=== PATIENT | male | born 1970 | race African-American/Black ===

== ENCOUNTER 2022-04-26 21:19 | Inpatient (IN) | payer MEDICARE ==
[~2022-04-26] VITALS: Ht 182.9 cm; Wt 105.2 kg
[2022-04-26] MEDS ORDERED: VANCOMYCIN 1G PREMIX 200 ML IV ONE (22:30)
[2022-04-26] MEDS ORDERED: PIPERACILLIN/TAZ 3.375G PREMIX 50 ML IV ONE (22:30)
[2022-04-26] MEDS ORDERED: SODIUM CHLORIDE 0.9% 1000ML BAG (SEPSIS BOLUS) IV ONE (22:30)
[2022-04-26] MEDS ORDERED: ACETAMINOPHEN 650MG SUPP PR ONE (22:45)
[2022-04-26 22:58] LABS: BASOPHILS % 0.7 % (0.0-2.0); EOSINOPHILS % 0.5 % (0.0-5.0); HEMATOCRIT. 27.3 % (42.0-52.0); HEMOGLOBIN. 8.9 g/dL (14.0-18.0); LYMPHOCYTES % 11.3 % (20.0-50.0); MEAN CORPUSCULAR HEMOGLOBIN 28.5 pg (28.0-32.0); MEAN CORPUSCULAR VOLUME 87.1 fL (80.0-94.0); MEAN PLATELET VOLUME 9.8 fl (7.4-10.4); MONOCYTES % 5.8 % (2.0-8.0); NEUTROPHILS % 81.7 % (40.0-76.0); PLATELET 207 x1000/uL (130-400); RED BLOOD CELL COUNT 3.13 mill/uL (4.7-6.1); RED CELL DISTRIBUTION WIDTH 19.3 % (11.6-14.6)
[2022-04-26 23:07] LABS: CHLORIDE 119 mEq/L (98-107)
[2022-04-27] VITALS (18 sets, daily range): BP systolic 132–207; BP diastolic 78–106
[2022-04-27 00:21] LABS: CLARITY URINE CLOUDY (CLEAR); COLOR URINE YELLOW (YELLOW); KETONES URINE NEGATIVE (NEGATIVE); LEUKOCYTE ESTERASE URINE 3+ (NEGATIVE); NITRITE URINE POSITIVE (NEGATIVE); OCCULT BLOOD URINE NEGATIVE (NEGATIVE); PH URINE >=9.0 (4.5-8.0); PROTEIN URINE 2+ (NEGATIVE); SPECIFIC GRAVITY URINE 1.015 (1.005-1.030)
[2022-04-27] MEDS ORDERED: MAGNESIUM/ALUMINUM HYDROXIDE/SIMETHICONE 30ML UDC PO PRN (01:00)
[2022-04-27] MEDS ORDERED: GUAIFENESIN 200MG/10ML SUGAR FREE UDC PO PRN (01:00)
[2022-04-27] MEDS ORDERED: ONDANSETRON HCL 4MG/2ML INJ IV PRN (01:00)
[2022-04-27] MEDS ORDERED: HYDROCODONE/ACETAMINOPHEN 10/325MG TABLET PO PRN (01:00)
[2022-04-27] MEDS ORDERED: HYDROCODONE/ACETAMINOPHEN 5/325MG TABLET PO PRN (01:00)
[2022-04-27] MEDS: DEXTROSE 5% WATER 1,000 ML IV SCH ×4 (01:00→20:30)
[2022-04-27] MEDS ORDERED: NALOXONE HCL 0.4MG/ML VIAL IV PRN (01:30)
[2022-04-27] MEDS ORDERED: AZITHROMYCIN 500 MG in DEXT 5% WATER 250 ML IV SCH (06:00)
[2022-04-27] MEDS ORDERED: CEFTRIAXONE 1,000 MG in DEXTROSE 5% WATER 50 ML IV SCH (06:00)
[2022-04-27] MEDS ORDERED: CEFTRIAXONE 1 G PREMIX 50 ML IV SCH (09:00)
[2022-04-27] MEDS: ENOXAPARIN 40MG/0.4ML SYR SUBCUT SCH (11:46)
[2022-04-27 13:22] LABS: FOLIC ACID (FOLATE) SERUM 18.4 ng/mL (>5.38)
[2022-04-27] MEDS: ACETAMINOPHEN 325MG TABLET PO PRN (13:24)
[2022-04-27] MEDS: CLONIDINE 0.1MG TABLET PO PRN (13:25)
[2022-04-27] MEDS ORDERED: TOPUD PO (14:03)
[2022-04-27] MEDS ORDERED: HYDR100T26 PO (14:03)
[2022-04-27] MEDS ORDERED: AMLO10TA80 PO (14:03)
[2022-04-27] MEDS ORDERED: LABE200T9 PO (14:03)
[2022-04-27] MEDS ORDERED: GABA-529 PO (14:03)
[2022-04-27 16:05] LABS: BASOPHILS % 1.2 % (0.0-2.0); EOSINOPHILS % 1.2 % (0.0-5.0); HEMATOCRIT. 23.3 % (42.0-52.0); HEMOGLOBIN. 7.7 g/dL (14.0-18.0); LYMPHOCYTES % 20.2 % (20.0-50.0); MEAN CORPUSCULAR HEMOGLOBIN 28.9 pg (28.0-32.0); MEAN CORPUSCULAR VOLUME 87.1 fL (80.0-94.0); MEAN PLATELET VOLUME 10.2 fl (7.4-10.4); MONOCYTES % 9.5 % (2.0-8.0); NEUTROPHILS % 67.9 % (40.0-76.0); PLATELET 162 x1000/uL (130-400); RED BLOOD CELL COUNT 2.67 mill/uL (4.7-6.1); RED CELL DISTRIBUTION WIDTH 19.2 % (11.6-14.6)
[2022-04-27] MEDS ORDERED: IOHEXOL-350 100 ML BOTTLE ONE (16:10)
[2022-04-27 16:11] LABS: CHLORIDE 118 mEq/L (98-107)
[2022-04-27 16:20] LABS: ETHANOL BLOOD < 10 mg/dL
[2022-04-27] MEDS ORDERED: GADOTERATE MEGLUMINE 5 MMOL/10 ML VIAL IV ONE (17:02)
[2022-04-27] MEDS ORDERED: AMPICILLIN SOD/SULBACTAM NA 3 G in SODIUM CHLORIDE 0.9% 100 ML IV SCH (17:15)
[2022-04-27 19:46] LABS: CLARITY URINE CLEAR (CLEAR); COLOR URINE YELLOW (YELLOW); KETONES URINE NEGATIVE (NEGATIVE); LEUKOCYTE ESTERASE URINE 2+ (NEGATIVE); NITRITE URINE NEGATIVE (NEGATIVE); OCCULT BLOOD URINE NEGATIVE (NEGATIVE); PH URINE 5.5 (4.5-8.0); PROTEIN URINE TRACE (NEGATIVE); SPECIFIC GRAVITY URINE 1.019 (1.005-1.030); UROBILINOGEN URINE 0.2 E.U./dL (0.2-1.0)
[2022-04-27] MEDS ORDERED: VANCOMYCIN 1,750 MG in DEXT 5% WATER 250 ML IV NR (20:00)
[2022-04-27 20:08] LABS: *AMPHETAMINES SCREEN URINE NEGATIVE (NEGATIVE); *BARBITURATES SCREEN URINE NEGATIVE (NEGATIVE); *BENZODIAZEPINES SCREEN URINE NEGATIVE (NEGATIVE); *COCAINE SCREEN URINE NEGATIVE (NEGATIVE); CANNABINOID URINE SCREEN NEGATIVE (NEGATIVE); METHADONE URINE SCREEN NEGATIVE (NEGATIVE); OPIATES URINE SCREEN NEGATIVE (NEGATIVE); PHENCYCLIDINE URINE SCREEN NEGATIVE (NEGATIVE)
[2022-04-27] MEDS: PIPERACILLIN/TAZOBACTAM 3.375 G in DEXTROSE 5% WATER 50 ML IV SCH (21:40)
[2022-04-27] MEDS: NICARDIPINE 50 MG in SODIUM CHLORIDE 0.9% 230 ML IV PRN (21:53)
[2022-04-27 22:13] LABS: BG BASE EXCESS -0.4 mmol/L (-2.0-2.0); BG CARBOXYHEMOGLOBIN 0.3 % (0.5-1.5); BG DEOXYHEMOGLOBIN 1.1 % (0.0-5.0); BG FRACTION INSPIRED OXYGEN 40; BG HCO3 ACT 24.1 mmol/L (22.0-26.0); BG METHEMOGLOBIN 0.3 % (0.0-1.5); BG OXYGEN SATURATION 98.9 % (92.0-98.5); BG OXYHEMOGLOBIN 98.3 % (94.0-97.0); BG PCO2 38.6 mmHg (35.0-45.0); BG PH 7.413 (7.350-7.450); BG SAMPLE SITE RIGHT RADIAL; BG TOTAL HEMOGLOBIN 8.6 g/dL (12.0-18.0); BG VENT MODE NASAL CANNULA
[2022-04-27] MEDS ORDERED: LABETALOL HCL 5MG/ML VIAL 20ML IV NR (23:30)
[2022-04-27] MEDS ORDERED: LABETALOL 5MG/ML SYR 20 MG/4 ML SYRINGE IV NR (23:59)
[2022-04-28] VITALS (70 sets, daily range): BP systolic 130–175; BP diastolic 69–129
[2022-04-28] MEDS ORDERED: LABETALOL 5MG/ML SYR 20 MG/4 ML SYRINGE IV NR ×2 (01:30→03:30)
[2022-04-28] MEDS: NICARDIPINE 50 MG in SODIUM CHLORIDE 0.9% 230 ML IV PRN ×3 (01:45→09:04)
[2022-04-28] MEDS ORDERED: HYDRALAZINE 10 MG in SODIUM CHLORIDE 0.9% 49.5 ML IV PRN (02:30)
[2022-04-28] MEDS: HYDRALAZINE 20MG/ML VIAL IV PRN ×2 (02:41→14:24)
[2022-04-28] MEDS: DEXTROSE 5% WATER 1,000 ML IV SCH ×2 (04:17→17:15)
[2022-04-28] MEDS: PIPERACILLIN/TAZOBACTAM 3.375 G in DEXTROSE 5% WATER 50 ML IV SCH ×3 (05:02→21:31)
[2022-04-28 05:03] LABS: BASOPHILS % 1.3 % (0.0-2.0); HEMATOCRIT. 28.9 % (42.0-52.0); HEMOGLOBIN. 9.6 g/dL (14.0-18.0); LYMPHOCYTES % 13.8 % (20.0-50.0); MEAN CORPUSCULAR VOLUME 87.7 fL (80.0-94.0); MEAN PLATELET VOLUME 10.6 fl (7.4-10.4); MONOCYTES % 8.3 % (2.0-8.0); NEUTROPHILS % 73.6 % (40.0-76.0); PLATELET 184 x1000/uL (130-400); RED CELL DISTRIBUTION WIDTH 19.5 % (11.6-14.6)
[2022-04-28] MEDS: VANCOMYCIN 1GM PMX (XELLIA) 200 ML IV SCH ×2 (05:03→17:14)
[2022-04-28 05:29] LABS: CHLORIDE 114 mEq/L (98-107)
[2022-04-28 05:35] LABS: PHOSPHORUS 2.7 mg/dL (2.5-4.9)
[2022-04-28] MEDS ORDERED: AZITHROMYCIN 500 MG in DEXT 5% WATER 250 ML IV SCH (06:00)
[2022-04-28] MEDS: ENOXAPARIN 40MG/0.4ML SYR SUBCUT SCH (09:07)
[2022-04-28] MEDS ORDERED: PNEUMOCOCCAL 23-VAL P-SAC VAC 0.5 ML IM ONE (10:00)
[2022-04-28 10:25] LABS: BG BASE EXCESS 1.6 mmol/L (-2.0-2.0); BG CARBOXYHEMOGLOBIN 0.3 % (0.5-1.5); BG DEOXYHEMOGLOBIN 5.9 % (0.0-5.0); BG FRACTION INSPIRED OXYGEN 28; BG HCO3 ACT 25.1 mmol/L (22.0-26.0); BG METHEMOGLOBIN 0.3 % (0.0-1.5); BG OXYGEN SATURATION 94.1 % (92.0-98.5); BG OXYHEMOGLOBIN 93.5 % (94.0-97.0); BG PCO2 35.2 mmHg (35.0-45.0); BG PH 7.471 (7.350-7.450); BG PO2 65.9 mmHg (75.0-100.0); BG SAMPLE SITE RIGHT RADIAL; BG TOTAL HEMOGLOBIN 9.9 g/dL (12.0-18.0); BG VENT MODE NASAL CANNULA
[2022-04-28] MEDS: NICARDIPINE 100 MG in SODIUM CHLORIDE 0.9% 60 ML IV PRN ×2 (12:11→20:18)
[2022-04-28] MEDS: AMLODIPINE 5MG TABLET PO SCH (13:41)
[2022-04-28] MEDS: CLONIDINE 0.1MG TABLET PO PRN (15:03)
[2022-04-28] MEDS ORDERED: LABETALOL 5MG/ML SYR 20 MG/4 ML SYRINGE IV PRN (15:15)
[2022-04-29] VITALS (77 sets, daily range): BP systolic 117–174; BP diastolic 56–107
[2022-04-29] MEDS: DEXTROSE 5% WATER 1,000 ML IV SCH ×3 (01:09→17:02)
[2022-04-29] MEDS: HYDRALAZINE 20MG/ML VIAL IV PRN (02:17)
[2022-04-29] MEDS: NICARDIPINE 100 MG in SODIUM CHLORIDE 0.9% 60 ML IV PRN ×3 (04:23→20:05)
[2022-04-29] MEDS: PIPERACILLIN/TAZOBACTAM 3.375 G in DEXTROSE 5% WATER 50 ML IV SCH (05:08)
[2022-04-29] MEDS: VANCOMYCIN 1GM PMX (XELLIA) 200 ML IV SCH ×2 (05:08→17:04)
[2022-04-29 05:49] LABS: HEMOGLOBIN 8.3 g/dL (14.0-18.0); MEAN CORPUSCULAR HEMOGLOBIN 28.9 pg (28.0-32.0); MEAN CORPUSCULAR VOLUME 86.4 fL (80.0-94.0); PLATELET 173 x1000/uL (130-400); RED BLOOD CELL COUNT 2.89 mill/uL (4.7-6.1); RED CELL DISTRIBUTION WIDTH 18.6 % (11.6-14.6)
[2022-04-29 06:40] LABS: CHLORIDE 112 mEq/L (98-107)
[2022-04-29 06:47] LABS: VANCOMYCIN TROUGH 18.2 ug/mL (5.0-10.0)
[2022-04-29] MEDS ORDERED: POTASSIUM CHLORIDE INJ 40 MEQ in DEXT 5% WATER 250 ML IV ONE (07:30)
[2022-04-29] MEDS: KCL 20MEQ/100ML X 2 FOR TOTAL KCL 40MEQ/200ML IV SCH ×2 (08:41→10:52)
[2022-04-29] MEDS: AMLODIPINE 5MG TABLET PO SCH (08:41)
[2022-04-29] MEDS: ENOXAPARIN 40MG/0.4ML SYR SUBCUT SCH (08:42)
[2022-04-29 12:05] LABS: CHLORIDE 111 mEq/L (98-107)
[2022-04-29] MEDS: HYDRALAZINE HCL 25MG TABLET PO SCH ×2 (13:55→21:10)
[2022-04-29] MEDS: MEROPENEM 1,000 MG in SODIUM CHLORIDE 0.9% 100 ML IV SCH (17:02)
[2022-04-29] MEDS: ENOXAPARIN 30MG/0.3ML SYR SUBCUT SCH (21:10)
[2022-04-30] VITALS (96 sets, daily range): BP systolic 126–183; BP diastolic 54–145
[2022-04-30] MEDS: MEROPENEM 1,000 MG in SODIUM CHLORIDE 0.9% 100 ML IV SCH ×3 (00:09→15:11)
[2022-04-30] MEDS: DEXTROSE 5% WATER 1,000 ML IV SCH ×3 (01:00→16:47)
[2022-04-30] MEDS: NICARDIPINE 100 MG in SODIUM CHLORIDE 0.9% 60 ML IV PRN ×3 (04:15→16:47)
[2022-04-30 06:21] LABS: BASOPHILS % 1.2 % (0.0-2.0); EOSINOPHILS % 3.8 % (0.0-5.0); HEMATOCRIT. 27.5 % (42.0-52.0); HEMOGLOBIN. 9.2 g/dL (14.0-18.0); LYMPHOCYTES % 30.8 % (20.0-50.0); MEAN CORPUSCULAR HEMOGLOBIN 28.6 pg (28.0-32.0); MEAN CORPUSCULAR VOLUME 85.9 fL (80.0-94.0); MEAN PLATELET VOLUME 10.5 fl (7.4-10.4); MONOCYTES % 12.2 % (2.0-8.0); PLATELET 217 x1000/uL (130-400); RED BLOOD CELL COUNT 3.21 mill/uL (4.7-6.1); RED CELL DISTRIBUTION WIDTH 18.4 % (11.6-14.6)
[2022-04-30 06:37] LABS: CHLORIDE 105 mEq/L (98-107)
[2022-04-30] MEDS: VANCOMYCIN 1GM PMX (XELLIA) 200 ML IV SCH ×2 (06:43→17:02)
[2022-04-30] MEDS: HYDRALAZINE HCL 25MG TABLET PO SCH (06:43)
[2022-04-30] MEDS ORDERED: POTASSIUM CHLORIDE 20MEQ/PACKET JT SCH (08:00)
[2022-04-30] MEDS: AMLODIPINE 10MG TABLET PO SCH (08:51)
[2022-04-30] MEDS: ENOXAPARIN 30MG/0.3ML SYR SUBCUT SCH ×2 (08:52→20:53)
[2022-04-30] MEDS: LABETALOL HCL 200MG TABLET PO SCH ×2 (08:58→20:54)
[2022-04-30 10:07] LABS: *CREATININE RANDOM URINE 71.7 mg/dL (Not Estab.); MICROALBUMIN RANDOM URINE 63.9 ug/mL (Not Estab.)
[2022-04-30] MEDS: HYDRALAZINE HCL 100MG TABLET PO SCH ×2 (13:43→21:05)
[2022-04-30] MEDS: MINOXIDIL 2.5MG TABLET PO SCH ×2 (15:11→21:06)
[2022-04-30] MEDS: HYDRALAZINE 20MG/ML VIAL IV PRN (17:35)
[2022-05-01] VITALS (62 sets, daily range): BP systolic 117–156; BP diastolic 60–87
[2022-05-01] MEDS: MEROPENEM 1,000 MG in SODIUM CHLORIDE 0.9% 100 ML IV SCH ×4 (00:26→23:37)
[2022-05-01] MEDS: DEXTROSE 5% WATER 1,000 ML IV SCH ×3 (00:26→17:35)
[2022-05-01] MEDS: NICARDIPINE 100 MG in SODIUM CHLORIDE 0.9% 60 ML IV PRN (00:56)
[2022-05-01] MEDS: VANCOMYCIN 1GM PMX (XELLIA) 200 ML IV SCH ×2 (05:19→17:19)
[2022-05-01] MEDS: HYDRALAZINE HCL 100MG TABLET PO SCH ×3 (05:20→21:12)
[2022-05-01 05:34] LABS: HEMATOCRIT 24.9 % (42.0-52.0); HEMOGLOBIN 8.3 g/dL (14.0-18.0); MEAN CORPUSCULAR HEMOGLOBIN 28.7 pg (28.0-32.0); PLATELET 237 x1000/uL (130-400); RED CELL DISTRIBUTION WIDTH 18.3 % (11.6-14.6)
[2022-05-01 06:00] LABS: CHLORIDE 106 mEq/L (98-107)
[2022-05-01] MEDS ORDERED: POTASSIUM CHLORIDE INJ 40 MEQ in DEXT 5% WATER 250 ML IV ONE (06:15)
[2022-05-01] MEDS: KCL 20MEQ/100ML X 2 FOR TOTAL KCL 40MEQ/200ML IV SCH ×2 (08:51→10:42)
[2022-05-01] MEDS: ENOXAPARIN 30MG/0.3ML SYR SUBCUT SCH ×2 (09:01→21:06)
[2022-05-01] MEDS: AMLODIPINE 10MG TABLET PO SCH (09:03)
[2022-05-01] MEDS: LABETALOL HCL 200MG TABLET PO SCH ×2 (09:03→21:05)
[2022-05-01] MEDS: MINOXIDIL 2.5MG TABLET PO SCH ×2 (09:04→21:06)
[2022-05-02] VITALS (12 sets, daily range): BP systolic 124–165; BP diastolic 58–99
[2022-05-02] MEDS: DEXTROSE 5% WATER 1,000 ML IV SCH ×3 (03:59→16:20)
[2022-05-02] MEDS: VANCOMYCIN 1GM PMX (XELLIA) 200 ML IV SCH ×2 (05:07→17:01)
[2022-05-02] MEDS: HYDRALAZINE HCL 100MG TABLET PO SCH ×3 (05:17→21:12)
[2022-05-02 06:53] LABS: HEMATOCRIT 24.6 % (42.0-52.0); HEMOGLOBIN 8.5 g/dL (14.0-18.0); MEAN CORPUSCULAR HEMOGLOBIN 29.2 pg (28.0-32.0); MEAN CORPUSCULAR VOLUME 84.4 fL (80.0-94.0); PLATELET 273 x1000/uL (130-400); RED BLOOD CELL COUNT 2.92 mill/uL (4.7-6.1); RED CELL DISTRIBUTION WIDTH 17.9 % (11.6-14.6)
[2022-05-02 06:57] LABS: CHLORIDE 105 mEq/L (98-107)
[2022-05-02] MEDS: MEROPENEM 1,000 MG in SODIUM CHLORIDE 0.9% 100 ML IV SCH ×3 (08:03→23:10)
[2022-05-02] MEDS: AMLODIPINE 10MG TABLET PO SCH (08:04)
[2022-05-02] MEDS: MINOXIDIL 2.5MG TABLET PO SCH ×2 (08:04→21:08)
[2022-05-02] MEDS: LABETALOL HCL 200MG TABLET PO SCH ×2 (08:05→21:07)
[2022-05-02] MEDS: ENOXAPARIN 30MG/0.3ML SYR SUBCUT SCH ×2 (08:05→21:07)
[2022-05-02] MEDS: POTASSIUM CHLORIDE 20MEQ/PACKET PO SCH ×2 (10:56→16:20)
[2022-05-02] MEDS: HYDRALAZINE 20MG/ML VIAL IV PRN ×2 (13:06→21:07)
[2022-05-03] VITALS (12 sets, daily range): BP systolic 131–157; BP diastolic 71–93
[2022-05-03] MEDS: DEXTROSE 5% WATER 1,000 ML IV SCH ×3 (01:00→16:35)
[2022-05-03] MEDS: HYDRALAZINE HCL 100MG TABLET PO SCH ×3 (06:13→23:30)
[2022-05-03 06:54] LABS: HEMATOCRIT 24.8 % (42.0-52.0); HEMOGLOBIN 8.4 g/dL (14.0-18.0); MEAN CORPUSCULAR VOLUME 85.7 fL (80.0-94.0); PLATELET 308 x1000/uL (130-400); RED BLOOD CELL COUNT 2.89 mill/uL (4.7-6.1); RED CELL DISTRIBUTION WIDTH 18.9 % (11.6-14.6)
[2022-05-03 07:02] LABS: CHLORIDE 106 mEq/L (98-107)
[2022-05-03] MEDS: MEROPENEM 1,000 MG in SODIUM CHLORIDE 0.9% 100 ML IV SCH ×3 (08:36→23:31)
[2022-05-03] MEDS: POTASSIUM CHLORIDE 20MEQ/PACKET PO SCH ×2 (08:36→16:35)
[2022-05-03] MEDS: ENOXAPARIN 30MG/0.3ML SYR SUBCUT SCH ×2 (08:37→20:46)
[2022-05-03] MEDS: LABETALOL HCL 200MG TABLET PO SCH ×2 (08:37→20:43)
[2022-05-03] MEDS: MINOXIDIL 2.5MG TABLET PO SCH ×2 (08:38→20:45)
[2022-05-03] MEDS: AMLODIPINE 10MG TABLET PO SCH (08:38)
[2022-05-03] MEDS ORDERED: BARIUM SULFATE 176 GM SUSP.RECON ONE (10:06)
[2022-05-03] MEDS ORDERED: MINO2.5T19 PO (12:30)
[2022-05-03] MEDS: ACETAMINOPHEN 325MG TABLET PO PRN (23:31)
[2022-05-04] VITALS (11 sets, daily range): BP systolic 127–157; BP diastolic 68–96
[2022-05-04] MEDS: HYDRALAZINE HCL 100MG TABLET PO SCH ×3 (05:15→23:11)
[2022-05-04] MEDS: MEROPENEM 1,000 MG in SODIUM CHLORIDE 0.9% 100 ML IV SCH ×2 (08:00→15:13)
[2022-05-04] MEDS: DEXTROSE 5% WATER 1,000 ML IV SCH ×3 (08:25→17:00)
[2022-05-04] MEDS: LABETALOL HCL 200MG TABLET PO SCH ×2 (08:26→20:53)
[2022-05-04] MEDS: MINOXIDIL 2.5MG TABLET PO SCH ×2 (08:26→20:55)
[2022-05-04] MEDS: POTASSIUM CHLORIDE 20MEQ/PACKET PO SCH ×2 (08:26→16:47)
[2022-05-04] MEDS: AMLODIPINE 10MG TABLET PO SCH (08:26)
[2022-05-04] MEDS: ENOXAPARIN 30MG/0.3ML SYR SUBCUT SCH ×2 (08:27→21:26)
[2022-05-04] MEDS ORDERED: HYDROXYZINE 25MG TABLET PO PRN ×2 (21:30→22:00)
[2022-05-05] VITALS: BP 123/66
== END 2022-05-05 01:09 | DRG 871 ==
LOC: ER 21:19 → MICUSO 04-27 00:12 → SUPCPDRO 04-27 00:35 → 8WST 04-27 11:20 → MICUNO 04-27 20:15 → 5EST 05-01 18:13
PROVIDERS: ADMIT Internal Medicine; ATTEND Internal Medicine
DX: A41.59 Other Gram-negative sepsis (principal); G93.41 Metabolic encephalopathy; L89.153 Pressure ulcer of sacral region, stage 3; E44.0 Moderate protein-calorie malnutrition; E87.0 Hyperosmolality and hypernatremia; N39.0 Urinary tract infection, site not specified; N17.9 Acute kidney failure, unspecified; J39.0 Retropharyngeal and parapharyngeal abscess; G95.89 Other specified diseases of spinal cord; I69.354 Hemiplegia and hemiparesis following cerebral infarction affecting left non-dominant side; R65.20 Severe sepsis without septic shock; Z20.822 Contact with and (suspected) exposure to COVID-19; B96.89 Other specified bacterial agents as the cause of diseases classified elsewhere; E86.0 Dehydration; D64.9 Anemia, unspecified; E88.09 Other disorders of plasma-protein metabolism, not elsewhere classified; F79 Unspecified intellectual disabilities; E87.6 Hypokalemia; D18.09 Hemangioma of other sites; I10 Essential (primary) hypertension; F20.9 Schizophrenia, unspecified; B96.4 Proteus (mirabilis) (morganii) as the cause of diseases classified elsewhere; E78.5 Hyperlipidemia, unspecified; M47.22 Other spondylosis with radiculopathy, cervical region; M48.02 Spinal stenosis, cervical region; F03.90 Unspecified dementia, unspecified severity, without behavioral disturbance, psychotic disturbance, mood disturbance, and anxiety; I51.7 Cardiomegaly; R41.841 Cognitive communication deficit; Z68.31 Body mass index [BMI] 31.0-31.9, adult
CPT/HCPCS: 36415; 36600; 70496; 70498; 70553; 71045; 72156; 72157; 76770; 80048; 80053; 80061; 80202; 80305; 80320; 81003; 82043; 82375; 82570; 82607; 82728; 82746; 82805; 82962; 83036; 83540; 83550; 83605; 83735; 83935; 84100; 84134; 84145; 84300; 84443; 84484; 84540; 85025; 85027; 87070; 87077; 87186; 87426; 87430; 93005; 93306; 97161; 97162; 97164; 97165; 97166; 97530; 99291; A9577; C9803; J0360; J0456; J0696; J1650; J2185; J2543; J3370; J3480; J3490; J7030; J7050; J7060; J7070; Q9967; G0480

== ENCOUNTER 2022-05-07 21:32 | Emergency (ER) | payer SELFPAY ==
[~2022-05-07] VITALS: Ht 182.9 cm; Wt 100.0 kg
[~2022-05-07 21:32] MED LIST: AMLO10TA80 PO; GABA-529 PO; HYDR100T26 PO; LABE200T9 PO; MINO2.5T19 PO; TOPUD PO
[2022-05-07 23:50] LABS: CHLORIDE 102 mEq/L (98-107)
[2022-05-07 23:51] LABS: INR 1.1; PROTHROMBIN TIME 11.6 sec (9.6-11.0)
[2022-05-07 23:58] LABS: EOSINOPHILS % 3.4 % (0.0-5.0); HEMOGLOBIN. 9.1 g/dL (14.0-18.0); LYMPHOCYTES % 30.6 % (20.0-50.0); MEAN CORPUSCULAR HEMOGLOBIN 28.8 pg (28.0-32.0); MEAN CORPUSCULAR VOLUME 85.1 fL (80.0-94.0); MONOCYTES % 9.1 % (2.0-8.0); NEUTROPHILS % 55.9 % (40.0-76.0); PLATELET 599 x1000/uL (130-400); RED BLOOD CELL COUNT 3.18 mill/uL (4.7-6.1); RED CELL DISTRIBUTION WIDTH 19.1 % (11.6-14.6)
[2022-05-08 02:37] LABS: CLARITY URINE CLEAR (CLEAR); COLOR URINE YELLOW (YELLOW); KETONES URINE NEGATIVE (NEGATIVE); LEUKOCYTE ESTERASE URINE TRACE (NEGATIVE); NITRITE URINE NEGATIVE (NEGATIVE); OCCULT BLOOD URINE NEGATIVE (NEGATIVE); PH URINE 6.5 (4.5-8.0); PROTEIN URINE NEGATIVE (NEGATIVE); SPECIFIC GRAVITY URINE 1.009 (1.005-1.030); UROBILINOGEN URINE 0.2 E.U./dL (0.2-1.0)
[2022-05-08] MEDS ORDERED: HYDRALAZINE 20MG/ML VIAL IV ONE (07:00)
[2022-05-08] MEDS ORDERED: CIPR250S3 MT (10:36)
[2022-05-08 13:39] VITALS: BP 176/89
== END 2022-05-08 13:41 | disposition home or self-care (01) ==
LOC: ER 21:32
DX: T83.098A Other mechanical complication of other urinary catheter, initial encounter (principal); N17.9 Acute kidney failure, unspecified; D63.1 Anemia in chronic kidney disease; R33.8 Other retention of urine; I12.9 Hypertensive chronic kidney disease with stage 1 through stage 4 chronic kidney disease, or unspecified chronic kidney disease; N18.9 Chronic kidney disease, unspecified; F20.9 Schizophrenia, unspecified; Z86.73 Personal history of transient ischemic attack (TIA), and cerebral infarction without residual deficits; Z93.1 Gastrostomy status; Y84.6 Urinary catheterization as the cause of abnormal reaction of the patient, or of later complication, without mention of misadventure at the time of the procedure; Y92.128 Other place in nursing home as the place of occurrence of the external cause
CPT/HCPCS: 36415; 51702; 74176; 80053; 81003; 85025; 99284; A4315